=== PATIENT | female | born 1940 | race Caucasian/White ===

== ENCOUNTER → 2017-01-15 | Outpatient (CLI) | payer MEDICARE, BC ==
--- NOTE | 2017-01-15 15:44 | REP ---
RIGHT HAND, FOUR VIEWS: HISTORY: Contusion. There is no acute fracture or dislocation. The joint spaces are normal in appearance. IMPRESSION: There is no acute fracture or dislocation. Signed by Shlomo Khan MD 01/15/2017 03:57 P
== END ==
LOC: M WUC 15:06
PROVIDERS: ATTEND Physician Assistant
DX: S60.221A Contusion of right hand, initial encounter (principal); X58.XXXA Exposure to other specified factors, initial encounter; Y93.9 Activity, unspecified; Y92.9 Unspecified place or not applicable; Y99.8 Other external cause status